=== PATIENT | male | born 1935 | race Caucasian/White ===

== ENCOUNTER → 2016-11-28 | Outpatient (CLI) | payer MEDICARE ==
[~2016-11-28] MED LIST: ALAWAY 10 ML10 ML OP; ALBUTEROL2 PUFFS/17 IN; ALBUTEROL2.5 MG/NEB IN; ASPIRIN 81MG TA81 MG PO; ASTELIN NA137 MCG/BO; ATENOLOL25 MG PO; AZITHROMYCIN250 MG PO; BENZONATATE100 M1 PO; BROMFED DM 480480 ML PO; BUDESONIDE0.25 MG/2 IH; CADUET 10 MG-201 TAB PO; CLINDAMYCIN HC300 MG PO; DARVOCET-N 1001 EACH PO; EX-LAX MAXIMUM25 MG PO; FLOMAX0.4 MG PO; ISOSORBIDE DINI10 MG PO; LEVAQUIN500 MG PO; LIPITOR20 MG PO; LORATADINE10 M1 PO; MECLIZINE25 MG PO; MEDROL 4MG. DOSE4 MG PO; NEXIUM40 MG PO; NITROSTAT 0.4M0.4 MG SL; OMNICEF 300 MG300 MG PO; PANTOPRAZOLE SO40 MG PO; PATANASE0.6% NS; PREDNICOT20 MG PO; PREDNISONE 20MG20 MG PO; PREDNISONE20 MG PO; SINGULAIR10 MG PO; SPIRIVA HA1 PUFF/INH IH; ZITHROMAX Z PA250 MG PO
--- NOTE | 2016-11-28 09:58 | RADIOLOGY REPORT PS360 ---
CHEST(2 VIEWS-NOT PORTABLE) HISTORY: RUQ EPIGASTRIC PAIN ORDERING PHYSICIAN: ELLIOT VALDES APRN PATIENT AGE: 81 years COMPARISON: None available FINDINGS: The cardiomediastinal silhouette and pulmonary vascularity are within normal limits. Coronary artery calcifications are present indicating coronary artery disease. Hyperinflation with attenuation of the peripheral pulmonary vessels consistent with obstructive chronic bronchitis. 9 mm nodular opacity right lower lung zone which may be related to nipple shadow. No acute bony abnormalities. There is moderate wedging involving what appears to represent T12 unchanged IMPRESSION: 1. COPD. 2. Coronary artery calcifications indicating coronary artery disease.
--- NOTE | 2016-11-28 11:47 | RADIOLOGY REPORT PS360 ---
CT ABD PELVIS W/ CONTRAST CLINICAL INDICATION: RUQ EPIGASTRIC PAIN ORDERING PHYSICIAN: ELLIOT VALDES APRN PATIENT AGE: 81 years COMPARISON: 09/28/2015 TECHNIQUE: Axial images obtained with sagittal and coronal reformats. PROCEDURE: Oral Contrast: Redicat IV Contrast: 75 mL Isovue-[id number] . FINDINGS: Faint increased density is present in the right lung base in the right lower lobe consistent with mild infiltrate/pneumonitis. Mild peribronchial thickening. There has been a prior cholecystectomy. No biliary dilatation evident. The liver, spleen, adrenal glands, and pancreas are unremarkable. No intestinal obstruction or free air. Unremarkable appearing kidneys. No renal calculi or ureteral calculi. No hydronephrosis. Fusiform mid abdominal aortic aneurysm is present measuring up to 3.5 cm in maximum transverse dimension similar to the previous exam. There is some mild mural thrombus noted at this region. This is 3 cm inferior to the level the renal arteries. There is mild dilatation of the abdominal aorta at the bifurcation is well measuring up to 2.7 cm. Proximal right common iliac is 1.5 cm and proximal left common iliac is 1.4 cm. This is not significant change. The appendix is mildly prominent but not significantly changed from the previous study measuring up to 7 mm in diameter. No definite evidence of appendicitis considering the interval stability. There is mild thickening of the urinary bladder wall. Prostate is enlarged at 5.8 cm. There is diverticulosis of the sigmoid colon but no evidence of diverticulitis. There is wedging of T12 centrally not significant changed IMPRESSION: 1. Stable CT appearance of the abdomen and pelvis with overall no significant change from 09/28/2015. 2. 3.5 cm infrarenal abdominal aortic aneurysm unchanged. 3. Enlarged prostate with mild thickening of the urinary bladder wall. 4. Diverticulosis of the sigmoid colon but no evidence of diverticulitis 5. Patchy infiltrate in right lung base
== END ==
LOC: RAD 11-22 10:30
DX: R10.13 Epigastric pain (principal); R10.11 Right upper quadrant pain
CPT/HCPCS: Q9967

== ENCOUNTER 2017-06-19 17:19 | Emergency (ER) | payer MEDICARE, MEDICAID ==
[~2017-06-19] VITALS: Ht 180.3 cm; Wt 65.8 kg
--- NOTE | 2017-06-19 17:39 | Emergency Room Report ---
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 N Clinical Suspician of Infection? N Mental Status: 1 - Regular (Normal Baseline) Sepsis Risk:Low Sepsis Risk Have you (or family members/close friends) recently traveled outside the [place]? N If Yes, where/when: Have you had exposure to infectious disease within the past month? N TB? Other? Specify: Cough, fever, green sputum x two days. No vomiting or chest pain. Hx dementia. ALLERGIES Coded Allergies: No Known Allergies (11/28/16) Home Medications Reported Medications Isosorbide Dinitrate 30 MG PO DAILY ASPIRIN (Aspirin) 81 MG PO DAILY Montelukast Sodium (Singulair) 10 MG PO QHS Nitroglycerin (Nitrostat 0.4MG (1/150 Gr) Tabs #25) 0.4 MG SL PRN Pantoprazole Sodium (Pantoprazole 40MG) 40 MG PO DAILY Tiotropium [place] (Spiriva) 1 PUFF IH DAILY AZELASTINE HCL (Astelin) 1 SPRAY NA DAILY #1 BOT Atorvastatin Calcium (Lipitor 20MG) 20 MG PO QHS Atenolol (Atenolol) 25 MG PO BID ALBUTEROL (Albuterol 0.083% Neb) 2.5 MG IN PRN PRN BREATHING History Medical History General CAD? No Angina: Yes VT: No Hypertension? Yes Hyperlipidemia? Yes CHF? No DVT? No PE? No COPD? Yes Asthma? No Anemia? No GERD? No Gastric ulcers? No GI Bleed? No Hernia? No Thyroid Problems? No Hypothyroidism? No CVA? No Seizures? No Diabetes? No Renal Insuffiency? No End Stage Renal Disease? No UTI? No Stones? No BPH? No GB Disease: Yes Nephritic Syndrome? No Asplenia? No Hepatitis? No Sickle Cell Disease? No Arthritis? No Migraines? No Cataracts? No Glaucoma? No MRSA? No HIV? No TB? No Anxiety? No Depression? No Cancer? Yes Site: SKIN More? 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 2 HERNIA R Family History Family Hx Diabetes No CAD Yes Hypertension No Hyperlipidemia No Cancer No TB No Social History Smoking Hx Smoker: Current Every Day Smoker Tobacco: Yes Type Cigarettes Packs/day 1 1/2 - 2 Packs Alcohol Alcohol: No Review of Systems All Other Systems Reviewed and Negative Constitutional see HPI Respiratory see HPI, cough Psychiatric/Neurological denies see HPI Physical Exam Vital Signs Vital Signs Date Time Temp Pulse Resp B/P Pulse O2 O2 Flow FiO2 Ox Delivery Rate 06/19 1729 99.8 104 16 130/70 98 General Appearance normal appearance, WD/WN, no apparent distress Eye Exam - bilateral eye normal exam Neck normal inspection, non-tender, supple, full range of motion Respiratory Status Yes: trachea midline, chest symmetrical, non tender chest, productive cough. No : respiratory distress, tender on palpation, use of accessory muscles, pain on inspiration, pain on expiration, non productive cough. Lung Sounds bilateral: normal breath sounds, lungs clear, decreased breath sounds. Cardiovascular normal exam, regular rate/rhythm, no peripheral edema, no gallop, no JVD, no murmur, no rub, normal peripheral pulses Gastrointestinal normal bowel sounds, normal exam, non tender, soft, no organomegaly, no pulsatile mass, no guarding, no rebound Extremities non-tender, normal range of motion, normal inspection, normal capillary refill, no calf tenderness, no pedal edema Strength 4 Upper Ext (L), 4 Upper Ext (R), 4 Lower Ext (L), 4 Lower Ext (R) Neurologic alert, normal exam, no motor/sensory deficits, oriented x 3 Glascow Coma Scale Glascow Coma Scale Response Value EYE response: 4 Spontaneously 4 MOTOR response: 6 OBEYS 6 VERBAL response: 5 Oriented & Converses 5 Total 15 Skin intact, normal color, warm/dry Medical Decision Making LABS/Meds/Orders Pt receiving controlled substance in ED? No Results/Orders Laboratory Tests 06/19/17 1812: Urine Color DK YELLOW, Urine Appearance CLEAR, Urine pH 6.0, Ur Specific [place] >= 1.030, Urine Protein 2+ H, Urine Ketones NEGATIVE, Urine Blood 2+ H, Urine Nitrate NEGATIVE, Urine Bilirubin NEGATIVE, Urine Urobilinogen 2.0, Ur Leukocyte Esterase NEGATIVE, Urine Glucose NEGATIVE 06/19/171729: Lactic Acid 1.2 06/19/171729: Sodium 138, Potassium 4.0, Chloride 102, Carbon Dioxide 30, BUN 18, Creatinine 1.4 H, Estimated Creat Clear 39 L, Estimated GFR (MDRD) 49, Glucose 158 H, Calcium 11.3 H, Total Bilirubin 1.0, AST 27, ALT 22, Alkaline Phosphatase 104, Total Protein 7.7, Albumin 3.3 L, Globulin 4.4 H, Albumin/Globulin Ratio 0.8 L, WBC 12.5 H, RBC 4.96, Hgb 14.7, Hct 44.9, MCV 90.5, RDW 12.6, Plt Count 169, MPV 8.5, Gran % 81.9 H, Gran # 10.3 H, Lymphocytes % 7.8 L, Monocytes % 9.7 H, Eosinophils % 0.2, Basophils % 0.3, Lymphocytes # 1.0, Monocytes # 1.2 H, Eosinophils # 0.0, Basophils # 0.0, PUBS MCHC 32.8, MCH 29.7, Influenza Type A Ag NOT DETECTED, Influenza Type B Ag NOT DETECTED Current Medication Orders Sig/Kezia Start time Last Medication Dose Route Stop Time Status Admin Methylprednisolone 0 .STK-MED ONE 06/19 1830 DC Sodium Succinate .ROUTE Levofloxacin 0 .STK-MED ONE 06/19 1829 DC .ROUTE Levofloxacin 500 MG ONCE ONE 06/19 1815 DC 06/19 PO 06/19 1816 183 Methylprednisolone 125 MG ONCE ONE 06/19 1815 DC 06/19 Sodium Succinate IV 06/19 1816 183 Albuterol/Ipratropium 3 ML ONCE ONE 06/19 174 DC INH 06/19 174 Sodium Chloride 10 ML PRN PRN 06/19 174 AC IV 06/20 1732 Albuterol/Ipratropium 0 .STK-MED ONE 06/19 1735 DC INH Orders Procedure Date/time Status URINALYSIS/COMPLETE 06/19 1812 Complete RT REQUEST DUONEB 06/19 1733 Active CHEST-PORTABLE 06/19 1733 Active IV SALINE LOCK 06/19 1733 Active CULTURE, BLOOD 06/19 1733 Active LACTIC ACID 06/19 173 Complete INFLUENZA A&B ANTIGENS 06/19 1733 Complete CBC WITH AUTO DIFF 06/19 1733 Complete CHEM 12 PROFILE 06/19 1733 Complete Departure Departure Time of Disposition 1841 Disposition DC Home or Self Care(routine) Clinical Impression Primary Impression: Bronchitis Condition STABLE Referrals ELLIOT VALDES APRN (Family) Patient Instructions Acute Bronchitis Discharge Counseling Counseled pt/family regarding diagnosis, test results, medications/RX, home care, follow up needs Prescriptions Current Visit Scripts Methylprednisolone (Medrol Dose Jose Armando) 4 MG PO UD #1 JOSE ARMANDO TAKE DIRECTED ON PACKAGING ALBUTEROL (Proventil Hfa Inhaler) 1-2 PUFF IH Q4-6H PRN #1 CAN Ref 1 generic ok Levofloxacin (Levaquin 500MG) 500 MG PO DAILY #6 TAB substitution ok ED Critical Care Critical Care No at 1843
[2017-06-19 17:48] LABS: HEMOGLOBIN 14.7 g/dL (14.1-18.0); LYMPH % 7.8 % (10-50)
[2017-06-19] MEDS ORDERED: PROVENTIL0.09 MG/A1 IH (18:11)
[2017-06-19] MEDS ORDERED: MEDROL 4MG. DOSE4 MG PO (18:11)
[2017-06-19] MEDS ORDERED: LEVAQUIN500 MG PO (18:12)
--- OUTSIDE RECORDS SUMMARY | 2017-06-19 18:26 | External Medical Summary Rpt | CCD ---
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 9% SO YUAN TI ON Sa 63 12 0 No li 80 -3 ne 70 0- Lo 10 20 ng Fl 07 13 er us 5 h Ac 10 ti ML ve Sy ri ng e 66 12 0 No PI 55 -3 RI 30 0- Lo N 00 20 ng 32 10 13 er 5 1 MG Ac ti TA ve BL ET SO 00 12 0 No YUAN 00 -3 -M 90 0- Lo ED 04 20 ng RO 72 13 er L 2 12 Ac 5 ti MG ve AL NI 00 12 0 No TR 28 -3 O- 10 0- Lo BI 32 20 ng D 60 13 er 2% 8 Ac OI ti NT ve ME NT IP 00 12 0 No RA 48 -3 T- 70 0- Lo AL 20 20 ng BU 10 13 er T 1 0. Ac 5- ti 3( ve 2. 5) MG /3 ML As 63 12 0 No pi 73 -3 ri 90 0- Lo n 02 20 ng EC 30 13 er 1 32 Ac 5M ti G ve Ta bl et AT 51 12 0 No EN 07 -3 OL 90 0- Lo OL 75 20 ng 92 13 er 25 0 Ac MG ti ve TA BL ET PA 51 12 0 No NT 07 -3 OP 90 0- Lo RA 05 20 ng ZO 12 13 er LE 0 Ac SO ti D ve DR 40 MG TA B DO 63 06 0 No CU 73 -2 SA 90 8- Lo TE 47 20 ng 81 13 er SO 0 DI Ac UM ti ve 10 0 MG CA PS UL E BI 00 06 0 No SA 71 -2 C- 30 8- Lo EV 10 20 ng AC 95 13 er 0 10 Ac ti MG ve BONILLA PP OS IT OR Y ZO 51 06 1 No LP 07 -2 ID 90 7- Lo EM 72 20 ng 52 13 er TA 0 RT Ac RA ti TE ve 10 MG TA BL ET LE 25 06 2 No VO 02 -2 FL 10 6- Lo OX 13 20 ng AC 28 13 er IN 3 Ac 75 ti 0 ve MG /1 50 ML -D 5W TO 63 06 2 No BR 32 -2 AM 30 6- Lo YC 30 20 ng IN 60 13 er 2 40 Ac ti MG ve /M L AL SO 00 06 2 No DI 40 -2 UM 97 6- Lo 98 20 ng CH 43 13 er LO 7 RI Ac DE ti ve 0. 9% SO YUAN TI ON PI 00 06 2 No PE 40 -2 RA 93 6- Lo CI 37 20 ng L- 90 13 er TA 4 ZO Ac BA ti CT ve 4. 5 GM AL LO 00 06 2 No VE 07 -2 NO 50 6- Lo X 62 20 ng 40 04 13 er 1 MG Ac /0 ti .4 ve ML SY RI NG E NI 00 06 2 No CO 06 -2 TI 75 6- Lo NE 12 20 ng 61 13 er 21 4 Ac MG ti /2 ve 4H R PA TC H MA 00 06 2 No PA 90 -2 P 41 6- Lo 32 98 20 ng 5 26 13 er MG 1 Ac TA ti BL ve ET 00 06 2 No AI 12 -2 FE 10 6- Lo NE 63 20 ng SI 81 13 er N 0 DM Ac ti SY ve RU P Mo 00 06 2 No rp 40 -2 hi 91 6- Lo ne 76 20 ng 23 13 er 2M 0 G/ Ac Ml ti ve Sy ri ng e IP 00 06 2 No RA 48 -2 T- 70 6- Lo AL 20 20 ng BU 10 13 er T 1 0. Ac 5- ti 3( ve 2. 5) MG /3 ML Vital Signs 07-28-2013 14:09 Name Value Interpretat Reference Comment ion Range Body 97.2 [degF] Temperature BP 72 mm[Hg] Diastolic BP Systolic 124 mm[Hg] Heart 74 /min Rate/Pulse Respiratory 20 /min Rate 07-28-2013 12:00 Name Value Interpretat Reference Comment ion Range O2% 95 % 07-28-2013 06:07 Name Value Interpretat Reference Comment ion Range Height 182.88 cm Weight 74.390 kg Measured 07-28-2013 02:36 Name Value Interpretat Reference Comment ion Range Body 98.0 [degF] Temperature BP 83 mm[Hg] Diastolic BP Systolic 166 mm[Hg] Heart 56 /min Rate/Pulse O2% 96 % Respiratory 24 /min Rate Weight 0 [oz_av] Measured 01-24-2013 11:40 Name Value Interpretat Reference Comment ion Range Body 98.2 [degF] Temperature BP 74 mm[Hg] Diastolic BP Systolic 148 mm[Hg] Heart 91 /min Rate/Pulse Respiratory 24 /min Rate 01-24-2013 08:00 Name Value Interpretat Reference Comment ion Range O2% 95 % 01-22-2013 16:21 Name Value Interpretat Reference Comment ion Range O2% 97 % 01-22-2013 12:14 Name Value Interpretat Reference Comment ion Range Body 98.2 [degF] Temperature BP 78 mm[Hg] Diastolic BP Systolic 143 mm[Hg] Heart 65 /min Rate/Pulse Height 172.72 cm Respiratory 20 /min Rate Weight 158 [lb_av] Measured Weight 71.668 kg Measured 12-29-2012 18:03 Name Value Interpretat Reference Comment ion Range Body 97.9 [degF] Temperature BP 72 mm[Hg] Diastolic BP Systolic 134 mm[Hg] Heart 53 /min Rate/Pulse O2% 99 % Respiratory 18 /min Rate 12-29-2012 17:19 Name Value Interpretat Reference Comment ion Range BP 89 mm[Hg] Diastolic BP Systolic 146 mm[Hg] Heart 141 /min Rate/Pulse Respiratory 20 /min Rate 12-29-2012 16:17 Name Value Interpretat Reference Comment ion Range O2% 97 % Results Labs Lab Lab Date Result Refere Interp Status Commen Order Detail nces retati t Range on CBC w auto diff (06-19-2017 17:30) Baso % 11-21-2 = 0.3 % 0.1-2.0 complet 017 ed 17:30 Automat = 0.0 0.0-0.4 complet ed 017 K/mm3 ed blood 17:30 eosinop hil count Automat = 0.2 % 0.1-12. complet ed 017 0 ed blood 17:30 eosinop hils/10 0 leukocy t Blood = 10.3 1.3-8.0 complet granulo 017 K/mm3 ed cytes 17:30 automat ed count (numb Granulo = 81.9 37.0-80 complet cyte 017 % .0 ed percent 17:30 age Blood = 44.9 42.0-52 complet hematoc 017 % .0 ed rit 17:30 (volume fractio n) Blood = 14.7 14.1-18 complet hemoglo 017 g/dL .0 ed bin 17:30 measure ment (mass/v olum Absolut = 1.0 0.7-4.5 complet e 017 K/mm3 ed lymphoc 17:30 yte count Lymphoc = 7.8 % 10-50 complet yte 017 ed count, 17:30 blood, automat ed Mean = 29.7 27-31.2 complet corpusc 017 pg ed ular 17:30 hemoglo bin (MCH) determ Automat = 32.8 31.8-35 complet ed 017 g/dl .4 ed erythro 17:30 cyte mean corpusc ular h Automat = 90.5 82.2-97 complet ed 017 fl .8 ed erythro 17:30 cyte mean corpusc ular v Absolut = 1.2 0.1-1.0 complet e 017 K/mm3 ed monocyt 17:30 e count [place] % = 9.7 % 1.7-9.3 complet 017 ed 17:30 Automat = 8.5 7.4-10. complet ed 017 fl 4 ed blood 17:30 platele t mean volume nicholas Blood = 169 142-424 complet platele 017 K/mm3 ed t count 17:30 Red = 4.96 4.6-6.2 complet blood 017 M/mm3 ed cell 17:30 count Automat = 12.6 11.5-17 complet ed 017 % .5 ed erythro 17:30 cyte distrib ution width Blood = 12.5 4.8-10. complet leukocy 017 K/MM3 8 ed socorro 17:30 count (number /volume ) Automat = 0.0 0-0.2 complet ed 017 K/MM3 ed blood 17:30 basophi l count (count/ vo Influenza A and B virus antigen assay (06-19-2017 17:30) Influen NOT NOT complet za A ag 017 DETECTE DETECTD ed QL 17:30 D NOT DETECTE D L Influen NOT NOT complet za 017 DETECTE DETECTD ed virus B 17:30 D NOT DETECTE antigen D L detecti on Comment: Blood lactic acid measurement (moles/vol (06-19-2017 17:30) Blood = 1.2 0.4-2.0 complet lactic 017 mmol/L ed acid 17:30 measure ment (moles/ vol Comprehensive metabolic panel (06-19-2017 17:30) Serum = 104 46-116 complet or 017 U/L ed plasma 17:30 alkalin e phospha tase nicholas Serum = 0.8 1.1-1.8 complet or 017 ed plasma 17:30 albumin /globul in mass ra Serum = 3.3 3.4-5.0 complet or 017 gm/dL ed plasma 17:30 albumin measure ment (mas Serum = 1.0 0.2-1.0 complet or 017 mg/dL ed plasma 17:30 total bilirub in measure m Serum = 18 7-18 complet or 017 mg/dL ed plasma 17:30 urea nitroge n measure men Serum = 11.3 8.5-10. complet or 017 mg/dL 1 ed plasma 17:30 calcium measure ment (mas Serum = 102 98-107 complet or 017 mmoL/L ed plasma 17:30 chlorid e measure ment (mo Carbon 06-19- = 30 21.0-32 complet dioxide 017 mmoL/L .0 ed 17:30 measure ment Serum 2 = 1.4 0.70-1. complet or 017 mg/dL 30 ed plasma 17:30 creatin ine measure ment ( Estimat = 39 50-200 complet ion of 017 ML/MIN ed creatin 17:30 ine renal clearan ce Estimat = 49 >60 complet ed 017 ML/MIN ed glomeru 17:30 lar filtrat ion rate (GF Comment: REFERENCE RANGE: >60 ML/MIN/1.73 SQUARE METERS Comment: If this patient is -Finn[place], then multiply the Comment: result by 1.210. Serum = 4.4 1.3-3.2 complet globuli 017 gm/dL ed n 17:30 measure ment (mass/v olume) Serum = 158 74-106 complet or 017 mg/dL ed plasma 17:30 glucose measure ment (mas Serum = 4.0 3.5-5.1 complet potassi 017 mmoL/L ed um 17:30 measure ment Serum = 138 136-145 complet sodium 017 mmoL/L ed measure 17:30 ment Serum = 27 15-37 complet or 017 U/L ed plasma 17:30 asparta te aminotr ansfera ALT = 22 12-78 complet (SGPT) 017 U/L ed ser/maki 17:30 s Protein = 7.7 6.4-8.2 complet total 017 gm/dL ed ser/maki 17:30 s Influenza virus A+B Ag [Presence] in Unspecified specimen (06-19-2017 17:30) Influen NOT NOT complet za 017 DETECTE DETECTD ed virus A 17:30 D Ag [Presen ce] in Unspeci fied specime n Influen NOT NOT complet za 017 DETECTE DETECTD ed virus B 17:30 D Ag [Presen ce] in Unspeci fied specime n LIPID PROFILE (07-28-2013 07:05) Cholest 12-30-2 119 Less complet 013 mg/dL than ed SerPl-m 07:05 200 Cnc HDLc 42.0 40-60 complet SerPl-m 013 MG/DL ed Cnc 07:05 LDLc 63.8 0-130 complet SerPl 013 mg/dL ed Calc-mC 07:05 nc VLDL 13.2 0-40 complet CHOLEST 013 UNK ed ARYAN 07:05 Trigl 66 30-200 complet SerPl-m 013 mg/dL ed Cnc 07:05 COMPREHENSIVE METABOLIC PANEL (07-28-2013 02:55) Glucose 108 74-106 complet 013 mg/dL ed Bld-mCn 02:55 c BUN 12 7-18 complet Bld-mCn 013 mg/dL ed c 02:55 Creat 1.3 0.8-1.3 complet SerPl-m 013 mg/dL ed Cnc 02:55 GFR/BSA 54 Greater complet .pred 013 ML/MIN than ed SerPl 02:55 60 Schwart z-vRate Sodium 141 136-145 complet SerPl-s 013 mmoL/L ed Cnc 02:55 Potassi 3.8 3.5-5.1 complet um 013 mmoL/L ed SerPl-s 02:55 Cnc Chlorid 105 98-107 complet e 013 mmoL/L ed SerPl-s 02:55 Cnc CO2 31 21.0-32 complet SerPl-s 013 mmoL/L .0 ed Cnc 02:55 Calcium 9.8 8.5-10. complet 013 mg/dL 1 ed SerPl-m 02:55 Cnc Prot 6.0 6.4-8.2 complet SerPl-m 013 gm/dL ed Cnc 02:55 Albumin 3.4 3.4-5.0 complet 013 gm/dL ed SerPl-m 02:55 Cnc Globuli 2.6 1.3-3.2 complet n 013 gm/dL ed Ser-mCn 02:55 c Albumin 1.3 UNK 1.1-1.8 complet /Glob 013 ed SerPl-m 02:55 Rto Bilirub 12-30-2 0.2 0.2-1.0 complet 013 mg/dL ed SerPl-m 02:55 Cnc AST 12-30-2 10 U/L 15-37 complet SerPl-c 013 ed Cnc 02:55 ALT 12-30-2 32 U/L 30-65 complet SerPl-c 013 ed Cnc 02:55 ALP 12-30-2 104 U/L 50-136 complet SerPl-c 013 ed Cnc 02:55 CBC with AUTO DIFF (07-28-2013 02:55) WBC # 12-30-2 7.0 4.8-10. complet Bld 013 K/MM3 8 ed Auto 02:55 RBC # 12-30-2 5.08 4.6-6.2 complet Bld 013 M/mm3 ed Auto 02:55 Hgb 12-30-2 15.3 14.1-18 complet Bld-mCn 013 g/dL .0 ed c 02:55 Hct Fr 12-30-2 45.4 % 42.0-52 complet Bld 013 .0 ed 02:55 MCV RBC 12-30-2 89.4 fl 82.2-97 complet 013 .8 ed 02:55 MCH RBC 12-30-2 30.2 pg 27-31.2 complet Qn 013 ed Auto 02:55 MEAN 12-30-2 33.8 31.8-35 complet CORPUSC 013 g/dl .4 ed ULAR 02:55 HGB CONC RDW RBC 12-30-2 14.5 % 11.5-17 complet Auto 013 .5 ed 02:55 Platele 12-30-2 116 142-424 complet t Bld 013 K/mm3 ed Ql 02:55 Manual MEAN 12-30-2 7.8 fl 7.4-10. complet PLATELE 013 4 ed T 02:55 VOLUME Granulo 12-30-2 65.0 % 37.0-80 complet cytes 013 .0 ed Fr Bld 02:55 Auto LYMPH % 12-30-2 23.8 % 10-50 complet 013 ed 02:55 Monocyt 12-30-2 7.9 % 1.7-9.3 complet es Fr 013 ed Bld 02:55 Auto Eosinop 12-30-2 2.3 % 0.1-12. complet hil Fr 013 0 ed Bld 02:55 Auto Basophi 1230-2 1.0 % 0.1-2.0 complet ls Fr 013 ed Bld 02:55 Auto Granulo 30-2 4.6 1.3-8.0 complet cytes # 013 K/mm3 ed Bld 02:55 Auto Lymphoc 30-2 1.7 0.7-4.5 complet ytes Fr 013 K/mm3 ed Bld 02:55 Auto Monocyt 30-2 0.6 0.1-1.0 complet es # 013 K/mm3 ed Bld 02:55 Auto Eosinop 30-2 0.2 0.0-0.4 complet hil # 013 K/mm3 ed Bld 02:55 Auto Basophi 30-2 0.1 0-0.2 complet ls # 013 K/MM3 ed Bld 02:55 Auto CBC with AUTO DIFF (01-23-2013 06:30) WBC # 27-2 12.5 4.8-10. complet Bld 013 K/MM3 8 ed Auto 06:30 RBC # 01-23-2 4.94 4.6-6.2 complet Bld 013 M/mm3 ed Auto 06:30 Hgb 01-23-2 14.9 14.1-18 complet Bld-mCn 013 g/dL .0 ed c 06:30 Hct Fr 01-23-2 45.1 % 42.0-52 complet Bld 013 .0 ed 06:30 MCV RBC 01-23-2 91.2 fl 82.2-97 complet 013 .8 ed 06:30 MCH RBC 01-23-2 30.1 pg 27-31.2 complet Qn 013 ed Auto 06:30 MEAN 01-23-2 33.1 31.8-35 complet CORPUSC 013 g/dl .4 ed ULAR 06:30 HGB CONC RDW RBC 01-23-2 14.0 % 11.5-17 complet Auto 013 .5 ed 06:30 Platele 01-23-2 167 142-424 complet t Bld 013 K/mm3 ed Ql 06:30 Manual MEAN 01-23-2 7.5 fl 7.4-10. complet PLATELE 013 4 ed T 06:30 VOLUME Granulo 01-23-2 82.6 % 37.0-80 complet cytes 013 .0 ed Fr Bld 06:30 Auto LYMPH % 06-27-2 10.0 % 10-50 complet 013 ed 06:30 Monocyt 06-27-2 6.7 % 1.7-9.3 complet es Fr 013 ed Bld 06:30 Auto Eosinop 06-27-2 0.3 % 0.1-12. complet hil Fr 013 0 ed Bld 06:30 Auto Basophi 06-27-2 0.3 % 0.1-2.0 complet ls Fr 013 ed Bld 06:30 Auto Granulo -27-2 10.3 1.3-8.0 complet cytes # 013 K/mm3 ed Bld 06:30 Auto Lymphoc -27-2 1.3 0.7-4.5 complet ytes Fr 013 K/mm3 ed Bld 06:30 Auto Monocyt 06-27-2 0.8 0.1-1.0 complet es # 013 K/mm3 ed Bld 06:30 Auto Eosinop -27-2 0.0 0.0-0.4 complet hil # 013 K/mm3 ed Bld 06:30 Auto Basophi -27-2 0.0 0-0.2 complet ls # 013 K/MM3 ed Bld 06:30 Auto Tobramycin Ran SerPl-mCnc (01-23-2013 03:02) Tobramy 01-23-2 1.3 complet melvin Ran 013 ug/mL ed 03:02 SerPl-m [facility] Tobramycin Ran SerPl-mCnc (01-22-2013 18:55) Tobramy 01-22-2 5.0 complet melvin Ran 013 ug/mL ed 18:55 SerPl-m Cnc BASIC METABOLIC PANEL (01-22-2013 12:40) Glucose 117 74-106 complet 013 mg/dL ed Bld-mCn 12:40 c BUN 01-22-2 16 7-18 complet Bld-mCn 013 mg/dL ed c 12:40 Creat 01-22-2 1.2 0.8-1.3 complet SerPl-m 013 mg/dL ed Cnc 12:40 ESTIMAT 01-22-2 53 50-200 complet ED 013 ML/MIN ed CREATIN 12:40 INE CLEARAN CE GFR 59 Greater complet (ESTIMA 013 ML/MIN than ed DOUGLAS) 12:40 60 Sodium 01-22-2 136 136-145 complet SerPl-s 013 mmoL/L ed Cnc 12:40 Potassi 01-22-2 4.2 3.5-5.1 complet um 013 mmoL/L ed SerPl-s 12:40 Cnc Chlorid 101 98-107 complet e 013 mmoL/L ed SerPl-s 12:40 Cnc CO2 01-22-2 30 21.0-32 complet SerPl-s 013 mmoL/L .0 ed Cnc 12:40 Calcium 01-22-2 10.9 8.5-10. complet 013 mg/dL 1 ed SerPl-m 12:40 Cnc CBC with AUTO DIFF (01-22-2013 12:40) WBC # 06-26-2 17.6 4.8-10. complet Bld 013 K/MM3 8 ed Auto 12:40 RBC # 26-2 5.06 4.6-6.2 complet Bld 013 M/mm3 ed Auto 12:40 Hgb 01-22-2 15.4 14.1-18 complet Bld-mCn 013 g/dL .0 ed c 12:40 Hct Fr 01-22-2 45.3 % 42.0-52 complet Bld 013 .0 ed 12:40 MCV RBC 01-22-2 89.6 fl 82.2-97 complet 013 .8 ed 12:40 MCH RBC 01-22-2 30.4 pg 27-31.2 complet Qn 013 ed Auto 12:40 MEAN --2 33.9 31.8-35 complet CORPUSC 013 g/dl .4 ed ULAR 12:40 HGB CONC RDW RBC -26-2 13.7 % 11.5-17 complet Auto 013 .5 ed 12:40 Platele -26-2 190 142-424 complet t Bld 013 K/mm3 ed Ql 12:40 Manual MEAN 06-26-2 7.6 fl 7.4-10. complet PLATELE 013 4 ed T 12:40 VOLUME Granulo --2 86.4 % 37.0-80 complet cytes 013 .0 ed Fr Bld 12:40 Auto LYMPH % 06-26-2 7.1 % 10-50 complet 013 ed 12:40 Monocyt 06-26-2 6.2 % 1.7-9.3 complet es Fr 013 ed Bld 12:40 Auto Eosinop 06-26-2 0.2 % 0.1-12. complet hil Fr 013 0 ed Bld 12:40 Auto Basophi 06-26-2 0.2 % 0.1-2.0 complet ls Fr 013 ed Bld 12:40 Auto Granulo --2 15.2 1.3-8.0 complet cytes # 013 K/mm3 ed Bld 12:40 Auto Lymphoc -26-2 1.2 0.7-4.5 complet ytes Fr 013 K/mm3 ed Bld 12:40 Auto Monocyt -26-2 1.1 0.1-1.0 complet es # 013 K/mm3 ed Bld 12:40 Auto Eosinop --2 0.0 0.0-0.4 complet hil # 013 K/mm3 ed Bld 12:40 Auto Basophi -26-2 0.0 0-0.2 complet ls # 013 K/MM3 ed Bld 12:40 Auto MYCOPLASMA IGM (RAPID) (01-22-2013 12:40) MYCOPLA 01-22-2 NON-JOSEPH NONREAC complet SMA IGM 013 CTIVE TIVE ed 12:40 (RAPID) BASIC METABOLIC PANEL (12-29-2012 16:30) Glucose 112 74-106 complet 013 mg/dL ed Bld-mCn 16:30 c BUN 16 7-18 complet Bld-mCn 013 mg/dL ed c 16:30 Creat 1.3 0.8-1.3 complet SerPl-m 013 mg/dL ed Cnc 16:30 ESTIMAT 49 50-200 complet ED 013 ML/MIN ed CREATIN 16:30 INE CLEARAN CE GFR 54 Greater complet (ESTIMA 013 ML/MIN than ed DOUGLAS) 16:30 60 Sodium 137 136-145 complet SerPl-s 013 mmoL/L ed Cnc 16:30 Potassi 3.6 3.5-5.1 complet um 013 mmoL/L ed SerPl-s 16:30 Cnc Chlorid 104 98-107 complet e 013 mmoL/L ed SerPl-s 16:30 Cnc CO2 06-02-2 30 21.0-32 complet SerPl-s 013 mmoL/L .0 ed Cnc 16:30 Calcium -02-2 9.2 8.5-10. complet 013 mg/dL 1 ed SerPl-m 16:30 Cnc CK SerPl-cCnc (12-29-2012 16:30) CK 02-2 106 U/L 39-308 complet SerPl-c 013 ed Cnc 16:30 CK MB SerPl-mCnc (12-29-2012 16:30) CK MB 12-29-2 2.1 0.0-3.6 complet SerPl-m 013 ng/mL ed Cnc 16:30 TROPONIN I (12-29-2012 16:30) TROPONI --2 Less 0.00-0. complet N I 013 than 06 ed 16:30 0.02 ng/mL CBC with AUTO DIFF (12-29-2012 16:30) WBC # 06-02-2 7.5 4.8-10. complet Bld 013 K/MM3 8 ed Auto 16:30 RBC # 0602-2 4.89 4.6-6.2 complet Bld 013 M/mm3 ed Auto 16:30 Hgb -02-2 14.9 14.1-18 complet Bld-mCn 013 g/dL .0 ed c 16:30 Hct Fr 12-29-2 43.7 % 42.0-52 complet Bld 013 .0 ed 16:30 MCV RBC -02-2 89.5 fl 82.2-97 complet 013 .8 ed 16:30 MCH RBC 02-2 30.5 pg 27-31.2 complet Qn 013 ed Auto 16:30 MEAN 02-2 34.0 31.8-35 complet CORPUSC 013 g/dl .4 ed ULAR 16:30 HGB CONC RDW RBC -02-2 13.9 % 11.5-17 complet Auto 013 .5 ed 16:30 Platele -02-2 182 142-424 complet t Bld 013 K/mm3 ed Ql 16:30 Manual MEAN 06-02-2 7.2 fl 7.4-10. complet PLATELE 013 4 ed T 16:30 VOLUME Granulo -02-2 57.4 % 37.0-80 complet cytes 013 .0 ed Fr Bld 16:30 Auto LYMPH % 06-02-2 30.5 % 10-50 complet 013 ed 16:30 Monocyt 06-02-2 10.1 % 1.7-9.3 complet es Fr 013 ed Bld 16:30 Auto Eosinop 06-02-2 1.1 % 0.1-12. complet hil Fr 013 0 ed Bld 16:30 Auto Basophi 06-02-2 0.9 % 0.1-2.0 complet ls Fr 013 ed Bld 16:30 Auto Granulo 06-02-2 4.3 1.3-8.0 complet cytes # 013 K/mm3 ed Bld 16:30 Auto Lymphoc 06-02-2 2.3 0.7-4.5 complet ytes Fr 013 K/mm3 ed Bld 16:30 Auto Monocyt 06-02-2 0.8 0.1-1.0 complet es # 013 K/mm3 ed Bld 16:30 Auto Eosinop 06-02-2 0.1 0.0-0.4 complet hil # 013 K/mm3 ed Bld 16:30 Auto Basophi 06-02-2 0.1 0-0.2 complet ls # 013 K/MM3 ed Bld 16:30 Auto Encounters Encounter Start End Date Code Location Performer Type Date Inpatient KAI Pérez MD (IN) 3 02:48 3 05:48 [facility] Inpatient KAI Pérez MD ([place]) 3 11:38 3 11:40 [facility] Emergency MARQUISE Shukla MD (ER) 3 17:07 3 18:04 [facility]
--- OUTSIDE RECORDS SUMMARY | 2017-06-19 18:26 | External Medical Summary Rpt | CCD ---
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 [...] melvin Ran 013 ug/mL ed 03:02 SerPl-m [facility] Tobramycin Ran SerPl-mCnc (01-22-2013 18:55) Tobramy 01-22-2 [...] Pérez MD (IN) 3 02:48 3 05:48 [facility] Inpatient KAI Pérez MD ([place]) 3 11:38 3 11:40 [facility] Emergency MARQUISE Shukla MD (ER) 3 17:07 3 18:04 [facility]
--- OUTSIDE RECORDS SUMMARY | 2017-06-19 18:27 | External Medical Summary Rpt ---
Author Author [employer], [employer] Organization [employer] Address Unknown Phone Unavailable Results Comprehensive metabolic 2000 panel in Serum or Plasma Observa Value Referen Units Interpr Notes Date tion ce etation Range Albumin/G 1.1 - 1.8 No Low No Jun 19 lobulin informati informati 2016 5:30 [Mass on in on in PM ratio] in source source Serum or data data Plasma Albumin 3.4 - 5.0 gm/dL Low No Jun 19 [Mass/vol informati 2017 5:30 ume] in on in PM Serum or source Plasma data Alkaline 46 - 116 U/L Normal No Jun 19 phosphata informati 2016 5:30 se on in PM [Enzymati source c data activity/ volume] in Serum or Plasma Bilirubin 0.2 - 1.0 mg/dL Normal No Jun 19 .total informati 2016 5:30 [Mass/vol on in PM ume] in source Serum or data Plasma Urea 7 - 18 mg/dL Normal No Jun 19 nitrogen informati 2016 5:30 [Mass/vol on in PM ume] in source Serum or data Plasma Calcium 8.5 - mg/dL High No Jun 19 [Mass/vol 10.1 informati 2017 5:30 ume] in on in PM Serum or source Plasma data Chloride 98 - 107 mmoL/L Normal No Jun 19 [Moles/vo informati 2016 5:30 lume] in on in PM Serum or source Plasma data Carbon 21.0 - mmoL/L Normal No Jun 19 dioxide, 32.0 informati 2017 5:30 total on in PM [Moles/vo source lume] in data Serum or Plasma Creatinin 0.70 - mg/dL High No Jun 19 e 1.30 informati 2017 5:30 [Mass/vol on in PM ume] in source Serum or data Plasma Creatinin 50 - 200 ML/MIN Low No Jun 19 e renal informati 2017 5:30 clearance on in PM source predicted data by Cockcroft -Gault formula Estimated >60 ML/MIN No REFERENCE Jun 19 informati RANGE: 2017 5:30 glomerula on in >60 PM r source ML/MIN/1. filtratio data 73 SQUARE n rate METERSIf (GF this patient is -A merican, then multiply theresult by 1.210. Globulin 1.3 - 3.2 gm/dL High No Jun 19 [Mass/vol informati 2016 5:30 ume] in on in PM Serum source data Glucose 74 - 106 mg/dL High No Jun 19 [Mass/vol informati 2016 5:30 ume] in on in PM Serum or source Plasma data Potassium 3.5 - 5.1 mmoL/L Normal No Jun 19 inform2016 5:30 [Moles/vo on in PM lume] in source Serum or data Plasma Sodium 136 - 145 mmoL/L Normal No Jun 19 [Moles/vo informati 2016 5:30 lume] in on in PM Serum or source Plasma data Aspartate 15 - 37 U/L Normal No Jun 19 inform2016 5:30 aminotran on in PM sferase source [Enzymati data c activity/ volume] in Serum or Plasma Alanine 12 - 78 U/L Normal No Jun 19 aminotran informati 2016 5:30 sferase on in PM [Enzymati source c data activity/ volume] in Serum or Plasma Protein 6.4 - 8.2 gm/dL Normal No Jun 19 [Mass/vol informati 2016 5:30 ume] in on in PM Serum or source Plasma data Lactate [Moles/volume] in Blood Observa Value Referen Units Interpr Notes Date tion ce etation Range Lactate 0.4 - 2.0 mmol/L Normal No Jun 19 [Moles/vo informati 2016 5:30 lume] in on in PM Blood source data Influenza virus A+B Ag [Presence] in Unspecified specimen Observa Value Referen Units Interpr Notes Date tion ce etation Range Influen NOT NOT No No No Jun 19 za DETECTE DETECTD informa informa informa 2017 virus A D tion in tion in tion in 5:30 PM Ag source source source [Presen data data data ce] in Unspeci fied specime n Influen NOT NOT No No Jun 19 za DETECTE DETECTD informa informa 2017 virus B D tion in tion in 5:30 PM Ag source source [Presen data data ce] in Unspeci fied specime n CBC W Auto Differential panel in Blood Observa Value Referen Units Interpr Notes Date tion ce etation Range Basophils 0 - 0.2 K/MM3 Normal No Jun 19 inform2016 5:30 [#/volume on in PM ] in source Blood by data Automated count Basophils 0.1 - 2.0 % Normal No Jun 19 /100 informati 2016 5:30 leukocyte on in PM s in source Blood by data Automated count Eosinophi 0.0 - 0.4 K/mm3 Normal No Jun 19 ls informati 2016 5:30 [#/volume on in PM ] in source Blood by data Automated count Eosinophi 0.1 - % Normal No Jun 19 ls/100 12.0 informati 2016 5:30 leukocyte on in PM s in source Blood by data Automated count Granulocy 1.3 - 8.0 K/mm3 High No Jun 19 socorro informati 2016 5:30 [#/volume on in PM ] in source Blood by data Automated count Granulocy 37.0 - % High No Jun 19 socorro/100 80.0 informati 2016 5:30 leukocyte on in PM s in source Blood by data Automated count Hematocri 42.0 - % Normal No Jun 19 t [Volume 52.0 informati 2016 5:30 on in PM Fraction] source of Blood data Hemoglobi 14.1 - g/dL Normal No Jun 19 n 18.0 informati 2016 5:30 [Mass/vol on in PM ume] in source Blood data Lymphocyt 0.7 - 4.5 K/mm3 Normal No Jun 19 es informati 2016 5:30 [#/volume on in PM ] in source Unspecifi data ed specimen by Automated count Lymphocyt 10 - 50 % Low No Jun 19 es informati 2016 5:30 [#/volume on in PM ] in source Unspecifi data ed specimen by Automated count Erythrocy 27 - 31.2 pg Normal Jun 19 te mean informati 2016 5:30 corpuscul on in PM ar source hemoglobi data n [Entitic mass] Erythrocy 31.8 - g/dl Normal No Jun 19 te mean 35.4 informati 2016 5:30 corpuscul on in PM ar source hemoglobi data n concentra tion [Mass/vol ume] by Automated count Erythrocy 82.2 - fl Normal No Jun 19 te mean 97.8 informati 2016 5:30 corpuscul on in PM ar volume source [Entitic data volume] by Automated count Monocytes 0.1 - 1.0 K/mm3 High No Jun 19 informati 2016 5:30 [#/volume on in PM ] in source Blood by data Automated count Monocytes 1.7 - 9.3 % High No Jun 19 /100 informati 2016 5:30 leukocyte on in PM s in source Blood by data Automated count Platelet 7.4 - fl Normal No Jun 19 mean 10.4 informati 2016 5:30 volume on in PM [Entitic source volume] data in Blood by Automated count Platelets 142 - 424 K/mm3 No Jun 19 informati informati 2016 5:30 [#/volume on in on in PM ] in source source Blood data data Erythrocy 4.6 - 6.2 M/mm3 Normal No Jun 19 socorro informati 2016 5:30 [#/volume on in PM ] in source Amniotic data fluid Erythrocy 11.5 - % Normal No Jun 19 te 17.5 informati 2016 5:30 distribut on in PM ion width source [Entitic data volume] by Automated count Leukocyte 4.8 - K/MM3 High No Jun 19 s 10.8 informati 2016 5:30 [#/volume on in PM ] in source Blood data
--- OUTSIDE RECORDS SUMMARY | 2017-06-19 18:27 | External Medical Summary Rpt | CCD ---
Author Author WO[facility] Address Unknown Phone [email or web address] Purpose Continuity of Care Document - through 2016
--- OUTSIDE RECORDS SUMMARY | 2017-06-19 18:27 | External Medical Summary Rpt | CCD ---
Author Author , WOODY MCKAY Address Unknown Phone [email or web address] Immunization Name Date Rout CVX Reac Dose Comm Prov Is Faci e tion ent ider Refu lity Give sed n PPV2 10-1 33 999 Hist H201 No H201 3 1-20 oric 11 al Info rmat ion - Sour ce Unsp ecif ied
--- OUTSIDE RECORDS SUMMARY | 2017-06-19 18:27 | External Medical Summary Rpt | CCD ---
Author Author , WOODY MCKAY Address Unknown Phone [email or web address] Immunization Name Date Rout CVX Reac Dose Comm Prov Is Faci e tion ent ider Refu lity Give sed n PPV2 10-1 33 999 Hist H201 No H201 3 1-20 oric 11 al Info rmat ion - Sour ce Unsp ecif ied
--- OUTSIDE RECORDS SUMMARY | 2017-06-19 18:27 | External Medical Summary Rpt | CCD ---
Author Author [facility] Address Unknown Phone [email or web address] Purpose Continuity of Care Document - through 2016
[2017-06-19 18:31] LABS: URINE BILIRUBIN - DIPSTICK NEGATIVE (NEG); URINE BLOOD 2+ (NEG)
[2017-06-19 18:45] VITALS: BP 130/70
--- NOTE | 2017-06-19 19:47 | RADIOLOGY REPORT PS360 ---
CHEST-PORTABLE HISTORY: cough w fever and sputum ORDERING PHYSICIAN: Alayna Quevedo MD PATIENT AGE: 81 years COMPARISON: 11/28/2016 FINDINGS: Borderline cardiomegaly without failure. COPD with chronic coarsening of the bronchovascular markings. No lobar consolidation or collapse. Previously noted nodular opacity overlying the right lower lobe is not apparent on today's study and was likely due to nipple artifact. No acute bony anomalies. IMPRESSION: Obstructive chronic bronchitis, no change with no acute finding.
== END 2017-06-19 18:47 | disposition home or self-care (01) ==
LOC: ER 17:19
PROVIDERS: Emergency Medicine
DX: J20.9 Acute bronchitis, unspecified (principal); F17.210 Nicotine dependence, cigarettes, uncomplicated; E78.5 Hyperlipidemia, unspecified